=== PATIENT | male | born 1975 | race Caucasian/White ===

== ENCOUNTER → 2016-08-16 | Emergency (ER) | payer OTHER ==
[~2016-08-16] MED LIST: FAMOTIDINE 20 MG/50 ML IVPB 50 ML IVPB ONE; SODIUM CHLORIDE 1,000 ML IV STA; methylPREDNISolone NA SUCC 125 MG/2 ML VIAL IVPB ONE; methylPREDNISolone NA SUCC 125 MG/2 ML VIAL ONE
[2016-08-16 20:09] VITALS: BP 120/67; PULSE 83; TEMP 98.3; BMI 30.2
[2016-08-16 21:27] LABS: BASOPHIL 0.1 % (0-2.0); MCH 29.6 pg (25.7-33.7); MCHC 33.7 g/dl (32.0-35.9); MEAN CELL VOLUME 87.7 fl (80-96); NEUTROPHILS 61.5 % (42.8-82.8); PLATELET COUNT 152 K/MM3 (134-434); RDW 12.6 % (11.9-15.9); WHITE BLOOD COUNT 8.4 K/mm3 (4.0-10.0)
[2016-08-16 21:53] LABS: ALBUMIN 3.8 g/dl (3.4-5.0); ALK PHOS 79 U/L (45-117); ANION GAP 11 (8-16); BILIRUBIN,TOTAL 0.6 mg/dL (0.2-1.0); CALCIUM 8.3 mg/dL (8.5-10.1); CO2 26 mmol/L (21-32); CREATININE 1.3 mg/dL (0.7-1.3); GLUCOSE,RANDOM 86 mg/dL (74-106); SGOT/AST 26 U/L (15-37); SGPT/ALT 46 U/L (12-78); TOT PROT 7.3 g/dl (6.4-8.2)
--- NOTE | 2016-08-16 23:07 | PDOC ---
History of Present Illness - General Chief Complaint: Allergic Reaction Stated Complaint: ALLERGIC REACTION Time Seen by Provider: 08/16/16 20:33 History Source: Patient Exam Limitations: No Limitations - History of Present Illness Initial Comments: 08/16/16 23:16 41yo Male patient presents to ED allergic reaction. Patient states symptoms began tonight around 6pm. Patient reports that he has had similar symptoms over the past 3 month, has seen an fishing game warden with no resolution of symptoms. Patient c/o upper and lower lip swelling. Denies throat involvement, diff breathing, or any other complaints at this time. Timing/Duration: 4-6 hours Severity: moderate Modifying Factors: improves with: medication (Claritin) Associated Symptoms: denies: denies symptoms, chest pain, cough, diaphoresis, fever/chills, headaches, loss of appetite, malaise, nausea/vomiting, rash, seizure, shortness of breath, syncope, weakness, other Aspirin Received prior to arrival: No: no aspirin today, unknown, 81 mg x 1, 81 mg x 2, 81 mg x 3, 81 mg x 4, 325 mg x 1, provided at home, provided by EMS, provided by [facility] Contraindications(Core Measure): No: Allergy, Other, Active Blding w/i 24 hrs., Plavix, Receiving Warfarin Past History - Travel Traveled outside of the country in the last 30 days: No Close contact w/someone who was outside of country & ill: No - Past Medical History Allergies/Adverse Reactions: Allergies Allergy/AdvReac Type Severity Reaction Status Date / Time No Known Allergies Allergy Verified 08/16/16 20:09 Home Medications: Ambulatory Orders Famotidine [Pepcid -] 40 mg PO BID #14 tablet 08/16/16 Prednisone [Deltasone -] 40 mg PO DAILY #14 tablet 08/16/16 Other medical history: PT DENIES ANY PMX - Immunization History Immunization Up to Date: Yes - Psycho/Social/Smoking Cessation Hx Suicidal Ideation: No Smoking History: Never smoked Have you smoked in the past 12 months: No Information on smoking cessation initiated: No Hx Alcohol Use: No Drug/Substance Use Hx: No Review of Systems - Review of Systems Able to Perform ROS?: Yes Is the patient limited Sammarinese proficient: No Constitutional: No: Chills, Fever HEENTM: Yes: Mouth Swelling. No: Eye Pain, Ear Pain, Throat Swelling, Mouth Pain, Difficulty Swallowing Respiratory: No: Cough, Shortness of Breath, Wheezing, Hemoptysis Cardiac (ROS): No: Chest Pain, Edema, Lightheadedness, Palpitations, Syncope, Chest Tightness ABD/GI: No: Diarrhea, Nausea, Vomiting All Other Systems: Reviewed and Negative *Physical Exam - Vital Signs Last Vital Signs Temp Pulse Resp BP Pulse Ox 98.3 F 83 18 120/67 98 08/16/16 20:06 08/16/16 20:06 08/16/16 20:06 08/16/16 20:06 08/16/16 20:06 - Physical Exam General Appearance: Yes: Nourished, Appropriately Dressed. No: Apparent Distress, Mild Distress, Moderate Distress, Severe Distress HEENT: positive: EOMI, TYRA, Normal ENT Inspection, Normal Voice, Symmetrical, TMs Normal, Pharynx Normal, Other (Moderate upper and lower lip swelling noted.) . negative: Pharyngeal Erythema, Tonsillar Exudate, Tonsillar Erythema, Nasal Congestion, Rhinorrhea, Sinus Tenderness, TM Bulging, TM Dull, TM Erythema, Excessive drooling Neck: positive: Trachea midline, Normal Thyroid, Supple. negative: Stridor, Lymphadenopathy (R), Lymphadenopathy (L) Respiratory/Chest: positive: Lungs Clear, Normal Breath Sounds. negative: Respiratory Distress, Accessory Muscle Use, Labored Respiration, Rapid RR Cardiovascular: positive: Regular Rhythm, Regular Rate. negative: Edema, JVD, Murmur Extremity: positive: Normal Capillary Refill, Normal Inspection, Normal Range of Motion. negative: Pedal Edema, Swelling Integumentary: positive: Normal Color, Dry, Warm Neurologic: positive: data capture specialist II-XII NML intact, Fully Oriented, Alert, Normal Mood/ Affect, Normal Response, Motor Strength 5/5 ED Treatment Course - LABORATORY CBC & Chemistry Diagram: 08/16/16 21:20 08/16/16 21:20 - ADDITIONAL ORDERS Additional order review: Laboratory Results 08/16/16 21:20 Sodium 143 Potassium 4.1 Chloride 106 Carbon Dioxide 26 Anion Gap 11 BUN 19 H Creatinine 1.3 Creat Clearance w eGFR > 60 Random Glucose 86 Calcium 8.3 L Total Bilirubin 0.6 AST 26 ALT 46 Alkaline Phosphatase 79 Total Protein 7.3 Albumin 3.8 08/16/16 21:20 RBC 4.91 MCV 87.7 MCHC 33.7 RDW 12.6 MPV 10.0 Neutrophils % 61.5 Lymphocytes % 27.9 Monocytes % 7.5 Eosinophils % 3.0 Basophils % 0.1 - Medications Given in the ED: ED Medications Discontinued Medications Generic Name Dose Route Start Last Admin Trade Name Jovanna PRN Reason Stop Dose Admin Diphenhydramine HCl 12.5 mg 08/16/16 20:51 08/16/16 21:07 Benadryl Injection - IVPUSH 08/16/16 20:52 12.5 mg ONCE ONE Administration Famotidine/Sodium Chloride 50 mls @ 100 mls/hr 08/16/16 20:51 08/16/16 21:07 Pepcid 20 Mg Premixed Ivpb - IVPB 08/16/16 21:20 100 mls/hr ONCE ONE Administration Sodium Chloride 1,000 mls @ 1,000 mls/hr 08/16/16 20:51 08/16/16 21:07 Normal Saline - IV 08/16/16 21:50 1,000 mls/hr ASDIR STA Administration Methylprednisolone Sodium Succinate 125 mg 08/16/16 20:51 08/16/16 21:07 Solu-Medrol - IVPB 08/16/16 20:52 125 mg ONCE ONE Administration Medical Decision Making - Medical Decision Making 08/16/16 23:20 Patient requesting to leave, patient states he will follow up with his primary care provider this week. Rx sent to patient pharmacy. Patient to leave AMA. *DC/Admit/Observation/Transfer Diagnosis at time of Disposition: Angio-edema Qualifiers: Encounter type: initial encounter Qualified Code(s): T78.3XXA - Angioneurotic edema, initial encounter - Discharge Dispostion Disposition: AGAINST MEDICAL ADVICE Condition at time of disposition: Stable Admit: No - Prescriptions Prescriptions: Prednisone [Deltasone -] 40 mg PO DAILY #14 tablet Famotidine [Pepcid -] 40 mg PO BID #14 tablet - Referrals Referrals: Delta Griffiths MD [Primary Care Provider] - - Patient Instructions Printed Discharge Instructions: Angioedema Additional Instructions: FOLLOW UP WITH YOUR DOCTOR DISCUSSED. RETURN IF SYMPTOMS WORSEN, OR ANY CONCERNS AND RETURN. YOU MAY RETURN IF YOU CHANGE YOUR MIND ABOUT TREATMENT. Print Language: LIBERIAN
== END | disposition left against medical advice (07) ==
LOC: JER 19:42
PROC: 3E033GC Introduction of Other Therapeutic Substance into Peripheral Vein, Percutaneous Approach (ICD-10-PCS; principal; 2016-08-16)
PROC: 3E0333Z Introduction of Anti-inflammatory into Peripheral Vein, Percutaneous Approach (ICD-10-PCS; 2016-08-16)
DX: T78.3XXA Angioneurotic edema, initial encounter (principal)
CPT/HCPCS: 36415; 80053; 85025; 99282-25